=== PATIENT | male | born 1980 | race African-American/Black ===

== ENCOUNTER 2018-09-12 22:16 | Emergency (ER) | payer SELFPAY ==
[~2018-09-12] VITALS: Ht 190.5 cm; Wt 92.0 kg
[2018-09-12 22:42] VITALS: BP 133/83
== END 2018-09-12 23:24 | disposition left against medical advice (07) ==
LOC: EDBD 22:16 → ER 22:16
DX: J02.9 Acute pharyngitis, unspecified (principal); H92.02 Otalgia, left ear; K08.89 Other specified disorders of teeth and supporting structures; F41.9 Anxiety disorder, unspecified; F12.10 Cannabis abuse, uncomplicated; F17.200 Nicotine dependence, unspecified, uncomplicated
CPT/HCPCS: 99281

== ENCOUNTER 2019-03-15 06:39 | Emergency (ER) | payer MEDICAID ==
[~2019-03-15] VITALS: Ht 190.5 cm; Wt 100.0 kg
[2019-03-15] MEDS ORDERED: LORAZEPAM 1MG TABLET PO ONE (07:15)
[2019-03-15 07:25] LABS: CHLORIDE 103 mEq/L (98-107)
[2019-03-15 07:28] LABS: ETHANOL BLOOD < 10 mg/dL
[2019-03-15 07:30] LABS: BASOPHILS % 0.6 % (0.0-2.0); EOSINOPHILS % 0.7 % (0.0-5.0); HEMOGLOBIN. 14.5 g/dL (14.0-18.0); LYMPHOCYTES % 31.7 % (20.0-50.0); MEAN CORPUSCULAR HEMOGLOBIN 30.8 pg (28.0-32.0); MEAN CORPUSCULAR VOLUME 89.3 fL (80.0-94.0); MEAN PLATELET VOLUME 8.1 fl (7.4-10.4); MONOCYTES % 7.4 % (2.0-8.0); NEUTROPHILS % 59.6 % (40.0-76.0); PLATELET 232 x1000/uL (130-400); RED BLOOD CELL COUNT 4.71 mill/uL (4.7-6.1); RED CELL DISTRIBUTION WIDTH 13.9 % (11.6-14.6)
[2019-03-15 09:31] VITALS: BP 115/72
== END 2019-03-15 12:46 | disposition left against medical advice (07) ==
LOC: EDBD 06:39 → ER 07:34
DX: R07.9 Chest pain, unspecified (principal); R00.2 Palpitations; F41.9 Anxiety disorder, unspecified; F32.9 Major depressive disorder, single episode, unspecified; F20.9 Schizophrenia, unspecified; F17.200 Nicotine dependence, unspecified, uncomplicated; F90.9 Attention-deficit hyperactivity disorder, unspecified type; F12.10 Cannabis abuse, uncomplicated
CPT/HCPCS: 36415; 71045; 80048; 80307; 80320; 80329; 84484; 93005; 99284; G0480

== ENCOUNTER 2020-12-31 13:33 | Emergency (ER) | payer MEDICAID ==
[~2020-12-31] VITALS: Ht 190.5 cm; Wt 113.0 kg
[2020-12-31] MEDS ORDERED: ACETAMINOPHEN 325MG TABLET PO ONE (14:00)
[2020-12-31] MEDS ORDERED: IBUPROFEN 800MG TABLET PO ONE (14:30)
[2020-12-31] MEDS ORDERED: GABAPENTIN 300MG CAPSULE PO ONE (14:30)
[2020-12-31] MEDS ORDERED: LIDOCAINE 5% PATCH TOP SCH (14:30)
[2020-12-31 15:27] VITALS: BP 130/94
== END 2020-12-31 16:30 | disposition left against medical advice (07) ==
LOC: ER 14:06
DX: M54.16 Radiculopathy, lumbar region (principal); F20.9 Schizophrenia, unspecified; F41.9 Anxiety disorder, unspecified; F32.9 Major depressive disorder, single episode, unspecified; F12.10 Cannabis abuse, uncomplicated
CPT/HCPCS: 72131; 93005; 99284